=== PATIENT | female | born 1970 | race Caucasian/White ===

== ENCOUNTER 2016-07-24 15:07 | Emergency (ER) | payer SELFPAY ==
[2016-07-24 16:00] VITALS: TEMP 98.4
[2016-07-24 16:01] VITALS: BMI 38.3
--- NOTE | 2016-07-24 16:37 | DIRPT ---
CLINICAL DATA: Status post fall in the garage. EXAM: LEFT ELBOW - COMPLETE 3+ VIEW COMPARISON: None. FINDINGS: There is no evidence of fracture, dislocation, or joint effusion. There is no evidence of arthropathy or other focal bone abnormality. Soft tissues are unremarkable. IMPRESSION: Negative. Electronically Signed By: Asha Quiros On: 07/24/2016 16:34
--- NOTE | 2016-07-24 16:53 | EDPRACDOC ---
- General Information Chief Complaint: Elbow Pain Stated Complaint: ELBOW PAIN Time Seen by Provider: 07/24/16 16:17 Information Source: Patient Mode Of Arrival: Car Home Medications: Home Medications Norethindrone [Ortho Micronor] 0.35 mg PO DAILY 01/17/13 Lisinopril 20 mg PO DAILY #60 tablet 11/16/15 Cyclobenzaprine HCl [Flexeril] 10 mg PO TID #14 tablet 02/21/16 Ketoprofen 75 mg PO TID #20 capsule 02/21/16 Oxycodone Immediate Release [Oxycodone Immediate Release (OxyIR)] 5 mg PO Q4H PRN #10 tab 02/21/16 Prednisone [Deltasone] 20 mg PO BID #10 tablet 02/21/16 Hydrocodone Bit/Acetaminophen [[place] 5-325 Tablet] 1 each PO Q4H #10 tab Meloxicam [Mobic] 7.5 mg PO BID #20 tab 07/24/16 Allergies/Adverse Reactions: Allergies Allergy/AdvReac Type Severity Reaction Status Date / Time No Known Allergies Allergy Verified 02/21/16 12:54 - History of Present Illness Onset: last PM HPI: PT PRESENTS TODAY WITH LEFT ELBOW PAIN AFTER FALL LAST NIGHT. PT STATES THAT HER "SUGAR OFTEN DROPS" AND LAST NIGHT SHE WAS HELPING HER CLEAN THE SHED, SHE "FELT HER SUGAR DROP AND FELT WEAK", CAUSING HER TO FALL ONTO HER LEFT ELBOW. PT WENT INSIDE AND ATE DINNER AND FELT MUCH BETTER. NO OTHER INJURY REPORTED. Location: Reports: Radial Mechanism: Reports: Blunt Trauma Circumstances: Reports: Fall Relevant History: Reports: None Pain Severity: Reports: Moderate Ability to Move Elbow: Fully ED Past Medical History - History Reviewed Yes Nurses notes reviewed and agree except as marked - Patient Medical History Neurological History: Reports: Seizures (as teenager) Cardiac History: Reports: Hypertension Musculoskeletal History: Reports: Rheumatoid Arthritis Psychological History: Denies: Depression Systemic History: Denies: Cancer - Social Medical History Smoking Status: Never smoker EDM Review of Systems - Review of Systems ROS Negative Except as Marked: Yes All systems reviewed and were negative except as marked Constitutional: No Symptoms Reported Respiratory: No Symptoms Reported Cardiovascular: No Symptoms Reported Gastrointestinal: No Symptoms Reported Neurological: No Symptoms Reported Musculoskeletal: Elbow Integumentary: No Symptoms Reported - Physical Exam Constitutional: Alert (Awake), No apparent distress Oriented to: Time, Person, Place Last recorded Vital Signs: Last Vital Signs Temp 98.4 F 07/24/16 15:59 Pulse 80 07/24/16 15:59 Resp 18 07/24/16 15:59 BP 143/72 07/24/16 15:59 Pulse Ox 95 07/24/16 15:59 Oxygen Pulse Oxygen Saturation 95 O2 Device Oxygen Flow Rate Fraction of Inspired Oxygen ( FIO2) - HEENT Head: Normal Eye Exam: Normal Neck: Normal, Denies Pain, Midline - Respiratory/Cardiovascular Respiratory: Normal - CTA Cardiovascular: Normal - GI Palpation: Normal Tenderness: Non tender - Musculoskeletal Back: Normal Extremities: Other (MILD SWELLING TO RIGHT POSTERIOR ELBOW W/OUT APPARENT DEFORMITY/BRUISING; PAIN WITH SUPINATION; FULL ROM BUT WITH PAIN. DISTAL PMS INTACT;) - Integumentary Skin: Normal Lymphatics: Normal - Neurologic Cerebellar: Normal Mood Description: Normal Thought: Coherent Perception: Normal ED Elbow Problem Exam - Musculoskeletal Elbow Symptoms: Swelling, Limited ROM, Moderate Tenderness Shoulder Symptoms: Normal Arm Symptoms: Normal Forearm Symptoms: Normal Wrist Symptoms: Normal Distal Function/Circulation: Normal - Integumentary Skin: Normal Lymphatics: Normal Decision Time to Discharge: 16:59 - Departure Disposition: Home Condition: Good Final Diagnosis: Contusion of elbow Instructions: RICE Therapy (ED) Education/Counseling Given To: Patient Education/Counseling Given Regarding: Diagnosis, Treatment, Follow Up Referrals: None,No Provider [Primary Care Provider] - One Week Franco Earl MD [Staff Physician] - One Week Prescriptions: New Hydrocodone Bit/Acetaminophen [[place] 5-325 Tablet] 1 each PO Q4H #10 tab Meloxicam [Mobic] 7.5 mg PO BID #20 tab No Action Norethindrone [Ortho Micronor] 0.35 mg PO DAILY Lisinopril 20 mg PO DAILY #60 tablet Cyclobenzaprine HCl [Flexeril] 10 mg PO TID #14 tablet Ketoprofen 75 mg PO TID #20 capsule Oxycodone Immediate Release [Oxycodone Immediate Release (OxyIR)] 5 mg PO Q4H PRN #10 tab PRN Reason: Pain Prednisone [Deltasone] 20 mg PO BID #10 tablet Additional Instructions: ICE TO PREVENT ANY SWELLING. IF SYMPTOMS PERSIST, FOLLOW UP WITH PCP/ORTHO.
[2016-07-24 17:12] VITALS: BP 136/68; PULSE 76
== END 2016-07-24 17:07 | disposition home or self-care (01) ==
LOC: EDMC 15:07
DX: S50.00XA Contusion of unspecified elbow, initial encounter (principal); W19.XXXA Unspecified fall, initial encounter; Y93.9 Activity, unspecified
CPT/HCPCS: 99283